=== PATIENT | male | born 1980 | race Two or more races ===

== ENCOUNTER 2019-09-19 23:24 | Emergency (ER) | payer SELFPAY ==
[~2019-09-19] VITALS: Ht 157.5 cm; Wt 70.2 kg
[2019-09-19 23:29] VITALS: BP 139/87
== END 2019-09-20 00:48 | disposition home or self-care (01) ==
LOC: ED 09-20 00:35
DX: R05 Cough (principal)
CPT/HCPCS: 71045; 87081; 87880; 99284